=== PATIENT | female | born 2000 | race Caucasian/White ===

== ENCOUNTER 2020-04-07 11:53 | Emergency (ER) | payer OTHER ==
[~2020-04-07] VITALS: Ht 177.8 cm; Wt 79.4 kg
[2020-04-07] MEDS ORDERED: BIRTH CONTROL (12:11)
[2020-04-07] MEDS ORDERED: MEDROLDOSEPACK PO (13:54)
[2020-04-07] MEDS ORDERED: TYLENOL WITH CO1 TA1 PO (13:54)
[2020-04-07] MEDS ORDERED: LIDODERM1 EACH TRANSDERM (13:54)
[2020-04-07] MEDS ORDERED: ONDANSETRON HCL4 M2 PO (13:54)
[2020-04-07 14:17] VITALS: BP 124/70
== END 2020-04-07 14:18 | disposition home or self-care (01) ==
LOC: M.ERS 11:53
DX: S80.12XA Contusion of left lower leg, initial encounter (principal); M25.552 Pain in left hip; M54.5 Low back pain; V49.49XA Driver injured in collision with other motor vehicles in traffic accident, initial encounter; Y93.89 Activity, other specified; Y92.89 Other specified places as the place of occurrence of the external cause; Y99.8 Other external cause status